=== PATIENT | female | born 1970 ===

== ENCOUNTER 2021-03-26 18:30 | Emergency (ER) | payer MEDICAID, OTHER ==
[~2021-03-26] VITALS: Ht 162.6 cm; Wt 89.7 kg
--- NOTE | 2021-03-26 18:37 | NUR ---
[employer]: EKG COMPLETE IN TRIAGE.
[2021-03-26 19:35] LABS: BASOPHILS % (AUTO) 0 % (0-1); EOSINOPHILS % (AUTO) 0 % (1-7); LYMPHOCYTES % (AUTO) 6 % (22-44); MEAN CORPUSCULAR HEMOGLOBIN 29.4 pg (27.0-34.8); MEAN CORPUSCULAR HGB CONC 34.4 g/dL (32.4-35.8); MEAN PLATELET VOLUME 9.1 fL (7.4-10.4); MONOCYTES % (AUTO) 7 % (2-9); NEUTROPHILS % (AUTO) 86 % (42-75); PLATELET COUNT 164 x10^3/uL (130-400); RED BLOOD COUNT 5.07 x10^6/uL (3.82-5.3); RED CELL DISTRIBUTION WIDTH 13.7 % (9.6-15.2)
[2021-03-26 19:47] LABS: ALANINE AMINOTRANSFERASE 27 U/L (12-78); ANION GAP 10 mmol/L (5-15); CALCIUM 8.6 mg/dL (8.5-10.1); CHLORIDE 97 mmol/L (98-107)
[2021-03-26 19:50] LABS: ALKALINE PHOSPHATASE 151 U/L (45-117); BILIRUBIN,TOTAL 0.9 mg/dL (0.2-1.0); TOTAL PROTEIN 7.8 g/dL (6.4-8.2)
[2021-03-26] MEDS ORDERED: ONDANSETRON 2MG/ML, 2ML IVPush ONE (20:00)
[2021-03-26] MEDS ORDERED: SODIUM CHLORIDE 0.9% 1,000ML IVBOLUS ONE ×2 (20:00→20:30)
[2021-03-26] MEDS ORDERED: ONDANSETRON 2MG/ML, 2ML ONE (20:00)
[2021-03-26] MEDS ORDERED: FAMOTIDINE 20 MG/2 ML IVPush ONE (20:00)
[2021-03-26] MEDS ORDERED: SODIUM CHLORIDE FLUSH 10ML SYR IVF ONE (20:00)
[2021-03-26] MEDS ORDERED: FAMOTIDINE 20 MG/2 ML ONE (20:01)
[2021-03-26 20:16] LABS: MD SCAN
--- NOTE | 2021-03-26 20:22 | NUR ---
pt laying in bed, a/ox4, all needs in reach, call light in reach, NAD, pt not vomitting, meds given and first bag of fluids started.
--- NOTE | 2021-03-26 21:14 | NUR ---
Patient is resting comfortably in bed. Vital Signs within normal limits.
[2021-03-26 21:34] LABS: MICROSCOPIC INDICATED
--- NOTE | 2021-03-26 21:49 | NUR ---
REPORT FROM DMITRIY TRAN
--- NOTE | 2021-03-26 22:40 | NUR ---
Dmitri muniz in [facility] - 03/26/21 at 2240 by ALIZE TASK RN: PT REPORTS RESOLUTION OF SYMTPOMS INCLUDING N/V AND CHILLS.
--- NOTE | 2021-03-26 22:41 | NUR ---
TASK RN: PT REPORTS RESOLUTION OF SYMTPOMS INCLUDING N/V AND CHILLS.
[2021-03-26] MEDS ORDERED: CEFTRIAXONE 2 GM in DEXTROSE 5% 50 ML IVPB ONE (23:00)
[2021-03-26] MEDS ORDERED: INSULIN REGULAR 100 UNITS/ML, 3ML VIAL SQ-INSULIN ONE (23:00)
[2021-03-26] MEDS ORDERED: INSULIN SINGLE DOSE, ER ONE (23:02)
--- NOTE | 2021-03-26 23:14 | NUR ---
PT UP TO RESTROOM WITH STEADY INDEPENDENT GAIT.
[2021-03-27 00:31] VITALS: BP 120/63
== END 2021-03-27 00:43 | disposition home or self-care (01) ==
LOC: ED 03-27 00:41
DX: N30.00 Acute cystitis without hematuria (principal); E11.65 Type 2 diabetes mellitus with hyperglycemia; R11.2 Nausea with vomiting, unspecified; R00.0 Tachycardia, unspecified
CPT/HCPCS: 36415; 71045; 80053; 81001; 82962; 83605; 85025; 87040; 87077; 87086; 87186; 93005; 96361; 96365; 96375; 99285; J0696; J1815; J2405; J7030